=== PATIENT | female | born 1945 | race Caucasian/White ===

== ENCOUNTER 2024-10-11 08:56 | Observation (INO) | payer MEDICARE, OTHER ==
[2024-10-02 16:27] LABS: BILIRUBIN,URINE NEGATIVE (Neg); CLARITY,URINE CLOUDY (Clear); COLOR,URINE YELLOW (Yellow); GLUCOSE, URINE NEGATIVE (Neg); KETONES,URINE NEGATIVE (Neg); LEUKOCYTE ESTERASE ,URINE NEGATIVE (Neg); NITRITES, URINE POSITIVE (Neg); OCCULT BLOOD,URINE MODERATE (Neg); PROTEIN,URINE NEGATIVE (Neg); UROBILINOGEN,URINE 0.2 E.U/dL (0.2-1.0)
[2024-10-02 16:39] LABS: UA COLLECTION TYPE NON-SPECIFIED
[2024-10-02 16:40] LABS: BACTERIA,URINE 4+ /HPF (Neg); RENAL CELLS, URINE FEW /HPF; SQUAMOUS EPITHELIAL CELL,UR FEW /LPF (FEW); TRANSITIONAL EPI CELLS,URINE FEW /HPF
[2024-10-02 16:46] LABS: BASOPHILS % (AUTO) 0.5 % (0-1); EOSINOPHILS # (AUTO) 0.1 X10'3 (0-0.9); EOSINOPHILS % (AUTO) 1.6 % (0-6); LYMPHOCYTES # (AUTO) 2.6 X10'3 (1.1-4.8); LYMPHOCYTES % (AUTO) 49.5 % (21-51); MEAN CORPUSCULAR HEMOGLOBIN 33.1 PG (27.0-31.0); MEAN CORPUSCULAR HGB CONC 34.3 g/dL (33.0-36.5); MEAN CORPUSCULAR VOLUME 96.5 FL (78-98); MEAN PLATELET VOLUME 7.6 FL (7.4-10.4); MONOCYTES # (AUTO) 0.6 X10'3 (0-0.9); NEUTROPHILS # (AUTO) 1.9 X10'3 (1.8-7.7); NEUTROPHILS % (AUTO) 36.4 % (42-75); PRE OP HEMATOCRIT 39.1 % (35.0-45.0); PRE OP HEMOGLOBIN 13.4 g/dL (12.0-16.0); PRE OP PLATELET COUNT 358 X10'3 (140-440); PRE OP WHITE BLOOD COUNT 5.3 10'3 (4.8-10.8); RED BLOOD COUNT 4.04 X10'6 (4.20-5.60); RED CELL DISTRIBUTION WIDTH 13.2 % (11.5-14.5)
[2024-10-02 16:47] LABS: BLOOD UREA NITROGEN 19 MG/DL (7-18); BUN/CREATININE RATIO 21.6 (10.0-20.0); CALCIUM 8.7 MG/DL (8.5-10.1); CHLORIDE 107 MMOL/L (99-107); CREATININE 0.88 MG/DL (0.40-0.90); PRE OP ANION GAP 5 (8-16); PRE OP BILIRUB, TOTAL 0.3 MG/DL (0.0-1.0); PRE OP GLUCOSE 80 MG/DL (70-104); PRE OP POTASSIUM 4.5 MMOL/L (3.4-5.1); PRE OP SODIUM 143 MMOL/L (135-145); TOTAL CARBON DIOXIDE 31.3 MMOL/L (24-32); TOTAL PROTEIN 7.6 G/DL (6.4-8.2); eGFR 62 ML/MIN
[2024-10-02 16:48] LABS: ALBUMIN/GLOBULIN RATIO 1.1 (1.1-1.5); ALKALINE PHOSPHATASE 83 IU/L (46-116); PRE OP ALT 19 U/L (30-65); PRE OP AST 11 U/L (10-37)
[2024-10-11] VITALS (19 sets, daily range): BP systolic 102–150; BP diastolic 46–74; PULSE 46–74; RESP 11–18; TEMP 95.8–98.6; O2SAT 93–100
[~2024-10-11] VITALS: Ht 157.5 cm; Wt 51.5 kg
[2024-10-11] MEDS: ceFOXitin sod/dextrose 2g/50ml 50 ML IV ONE (05:30)
[2024-10-11] MEDS: ringers solution, lacted 1,000 ML IV SCH ×3 (07:35→14:50)
[~2024-10-11 08:56] MED LIST: CELE-127 PO; GINK125C PO; METF-1203 PO; MULT-227 PO; POTA-192 PO; ceFOXitin sod/dextrose 2g/50ml 50 ML IV ONE; enalaprilat dihydrate 2.5mg/2ml vial IV PRN; labetalol 20mg/4ml (5mg/ml) syringe IV PRN; meperidine/PF 25mg/ml syringe IV PRN; morphine 2 MG/ML inj. syringe IV PRN; morphine 4 MG/ML inj SYRINge IV PRN; ondansetron/PF 4mg/2ml inj IV PRN; proCHLORperazine 10 MG/2 ml inj IV PRN
[2024-10-11] MEDS: famotidine 20mg tablet PO ONE (09:41)
[2024-10-11] MEDS ORDERED: vasoPRESSIN 20 units/ml inj. ONE (12:35)
[2024-10-11] MEDS ORDERED: clindamycin phosphate 40gm vag cream ONE (12:35)
[2024-10-11] MEDS ORDERED: neomy sulf/polymyxin B sulf. GU irrigation 1ml amp IR ONE (12:35)
[2024-10-11] MEDS ORDERED: midazolam 1 mg/ML 2ml injection ONE (12:54)
[2024-10-11] MEDS ORDERED: fentaNYL/PF 50MCG/1 ML 2ML syringe ONE (12:54)
[2024-10-11] MEDS ORDERED: sevoflurane 250ml liquid IH ONE (12:55)
[2024-10-11] MEDS ORDERED: propofol inj 20 ML IV ONE (13:17)
[2024-10-11] MEDS ORDERED: LIDOcaine 2% (20mg/ml) 5ml vial ONE (13:17)
[2024-10-11] MEDS: clindamycin phosphate 40gm vag cream VG ONE (13:53)
[2024-10-11] MEDS ORDERED: meperidine/PF 25mg/ml syringe ONE (14:40)
[2024-10-11] MEDS ORDERED: temazepam 15mg capsule PO PRN (14:50)
[2024-10-11] MEDS ORDERED: metoclopramide 5 mg/ml inj IV PRN (14:50)
[2024-10-11] MEDS ORDERED: magnesium hydroxide 30ml (MOM) UD suspension PO PRN (14:50)
[2024-10-11] MEDS ORDERED: LORazepam 2 mg/ml vial IV PRN (14:50)
[2024-10-11] MEDS ORDERED: diphenhydrAMINE 50 mg/ml inj IV PRN (14:50)
[2024-10-11] MEDS ORDERED: ondansetron/PF 4mg/2ml inj IV PRN (14:50)
[2024-10-11] MEDS ORDERED: ketorolac trometh 30MG/ML vial 30 MG/ML VIAL IV PRN (14:50)
[2024-10-11] MEDS ORDERED: HYDROcodone/acetaminophen 10/325mg tab PO PRN (14:50)
[2024-10-11] MEDS ORDERED: normal saline 500ml IV soln 500 ML IV PRN (14:50)
[2024-10-11] MEDS: docusate sod 100mg capsule PO SCH (20:00)
[2024-10-12] MEDS: HYDROcodone/acetaminophen 10/325mg tab PO PRN (01:48)
[2024-10-12 02:00] VITALS: BP 121/104; PULSE 61; RESP 16; TEMP 97.8; O2SAT 93
[2024-10-12 04:40] LABS: BASOPHILS % (AUTO) 0.2 % (0-1); EOSINOPHILS % (AUTO) 0 % (0-6); HEMATOCRIT 36.5 % (35.0-45.0); HEMOGLOBIN 12.5 g/dl (12.0-16.0); LYMPHOCYTES # (AUTO) 1.2 X10'3 (1.1-4.8); LYMPHOCYTES % (AUTO) 12.5 % (21-51); MEAN CORPUSCULAR HEMOGLOBIN 33.3 PG (27.0-31.0); MEAN CORPUSCULAR HGB CONC 34.4 g/dL (33.0-36.5); MEAN CORPUSCULAR VOLUME 96.9 FL (78-98); MEAN PLATELET VOLUME 7.6 FL (7.4-10.4); MONOCYTES # (AUTO) 0.6 X10'3 (0-0.9); NEUTROPHILS # (AUTO) 7.6 X10'3 (1.8-7.7); NEUTROPHILS % (AUTO) 81.3 % (42-75); PLATELET COUNT 317 X10'3 (140-440); RED BLOOD COUNT 3.76 X10'6 (4.20-5.60); RED CELL DISTRIBUTION WIDTH 12.7 % (11.5-14.5); WHITE BLOOD COUNT 9.3 X10'3 (4.5-11.0)
[2024-10-12 04:49] LABS: ALBUMIN 2.8 G/DL (3.4-5.0); ANION GAP 8 (8-16); BLOOD UREA NITROGEN 15 MG/DL (7-18); BUN/CREATININE RATIO 18.3 (10.0-20.0); CALCIUM 8.6 MG/DL (8.5-10.1); CHLORIDE 104 MMOL/L (99-107); CREATININE 0.82 MG/DL (0.40-0.90); GLUCOSE 113 MG/DL (70-104); POTASSIUM 4.4 MMOL/L (3.5-5.1); SODIUM 137 MMOL/L (135-145); TOTAL CARBON DIOXIDE 25.5 MMOL/L (24-32); eCRCL 43 ML/MIN; eGFR 67 ML/MIN
[2024-10-12 06:00] VITALS: BP 131/80; PULSE 52; RESP 16; TEMP 98.5; O2SAT 97
[2024-10-12 07:41] VITALS: RESP 16; O2SAT 96
[2024-10-12 10:00] VITALS: BP 108/54; PULSE 66; RESP 16; TEMP 98.1; O2SAT 98
== END 2024-10-12 13:48 | disposition home or self-care (01) ==
LOC: PAS 08:56 → SUR 3N 16:20 → PAS 17:02 → SUR 3N 17:03
PROVIDERS: ADMIT Obstetrics & Gynecology Obstetrics; ATTEND Obstetrics & Gynecology Obstetrics
DX: N81.6 Rectocele (principal); N81.10 Cystocele, unspecified; N81.89 Other female genital prolapse; Z79.899 Other long term (current) drug therapy
CPT/HCPCS: 57260; 71046; 80048; 80053; 81001; 82948; 86885; 86900; 86901; 87077; 87186; A4618; A5200; A7000; G0378; J7120; 36415; 85025; 87081; 87088; A4338; A4615; A6449; J0694; J1100; J2003; J2175; J2250; J2405; J2704; J3010; J3490